=== PATIENT | female | born 1970 | race Caucasian/White ===

== ENCOUNTER 2023-08-04 15:14 | Outpatient (CLI) | payer OTHER | END 2023-08-04 15:15 | disposition home or self-care (01) | LOC: CSHMRI 15:14 | PROVIDERS: ATTEND Surgery | DX: M47.26 Other spondylosis with radiculopathy, lumbar region (principal); M25.48 Effusion, other site; N94.9 Unspecified condition associated with female genital organs and menstrual cycle | CPT/HCPCS: 72148 ==

== ENCOUNTER 2024-07-08 10:05 | Outpatient (CLI) | payer SELFPAY ==
[2024-07-08 10:48] LABS: #Basophils 0.04 10x3/uL (0.0-0.2); #Eosinophils 0.14 10x3/uL (0.0-0.5); #Monocytes 0.45 10x3/uL (0.0-1.1); %Basophils 0.9 % (0.0-2.0); %Eosinophils 3.1 % (0.0-6.0); %Lymphocytes 31.3 % (18.0-47.0); %Monocytes 9.8 % (0.0-10.0); %Neutrophils 54.7 % (40.0-75.0); Hematocrit 41.7 % (34.9-44.5); Hemoglobin 13.7 g/dL (12.0-15.5); Mean Corpuscular HGB CONC 32.9 g/dL (32.0-36.0); Mean Corpuscular Hemoglobin 31.4 pg (27.0-33.0); Mean Corpuscular Volume 95.4 fL (81.6-98.3); Mean Platelet Volume 9.6 fL (7.4-10.4); Platelet Count 276 10x3/uL (150-450); RBC Distribution Width 12.1 % (11.5-14.5); Red Blood Cell (RBC) Count 4.37 10x6/uL (3.90-5.03); White Blood Cell (WBC) Count 4.6 10x3/uL (3.5-10.5)
[2024-07-08 10:54] LABS: Anion Gap 12 mmol/L (10-20); BUN (Urea Nitrogen) 16 mg/dL (9.8-20.1); Calc. Creatinine Clearance 0 mL/min (70-130); Calcium 9.3 mg/dL (7.8-10.44); Carbon Dioxide 27 mmol/L (22-29); Chloride 105 mmol/L (98-107); Estimated GFR 86; Glucose 95 mg/dL (70-105); Potassium 4.2 mmol/L (3.5-5.1); Sodium 140 mmol/L (136-145)
== END 2024-07-08 10:06 | disposition home or self-care (01) ==
LOC: CSHLAB 10:05
PROVIDERS: ATTEND Specialist
DX: Z01.812 Encounter for preprocedural laboratory examination (principal); D05.12 Intraductal carcinoma in situ of left breast
CPT/HCPCS: 80048; 85025

== ENCOUNTER 2024-07-16 06:21 | Day surgery (SDC) | payer SELFPAY ==
[2024-07-08 10:26] VITALS: BMI 20.9
[2024-07-16] MEDS ORDERED: CEFAZOLIN 2 GM VIAL ONE (07:34)
[2024-07-16] MEDS ORDERED: Bupivacaine/Epinephrine 0.25% 30 ML VIAL ONE ×2 (07:34→12:47)
[2024-07-16] MEDS ORDERED: Ketorolac Tromethamine 30 MG (1 mL) VIAL ONE (10:21)
[2024-07-16] MEDS ORDERED: Acetaminophen 500 MG TAB ONE (10:22)
[2024-07-16] MEDS ORDERED: fentaNYL 50 mcg/mL 1 mL Vial ONE (11:40)
[2024-07-16] MEDS ORDERED: PROPOFOL 40 ML ONE (11:40)
[2024-07-16] MEDS ORDERED: Lidocaine 1% PF 5 ML VIAL ONE (11:41)
[2024-07-16] MEDS ORDERED: Dexamethasone 20 MG/5 ML VIAL ONE (12:13)
[2024-07-16] MEDS ORDERED: Ondansetron PF 4 MG/2 ML Vial ONE ×2 (12:13→14:05)
[2024-07-16] MEDS ORDERED: ePHEDrine Sulfate 50 MG/10 ML VIAL ONE (12:17)
[2024-07-16] MEDS ORDERED: Promethazine HCl 25 MG/ML VIAL ONE (13:41)
== END 2024-07-16 15:05 | disposition home or self-care (01) ==
LOC: CSHSDC 06:21
PROVIDERS: ATTEND Specialist
PROC: 0HBU0ZZ Excision of Left Breast, Open Approach (ICD-10-PCS; principal; 2024-07-16)
PROC: 0JB50ZZ Excision of Left Neck Subcutaneous Tissue and Fascia, Open Approach (ICD-10-PCS; principal; 2024-07-16)
DX: D05.12 Intraductal carcinoma in situ of left breast (principal); D17.0 Benign lipomatous neoplasm of skin and subcutaneous tissue of head, face and neck; N64.1 Fat necrosis of breast; R92.0 Mammographic microcalcification found on diagnostic imaging of breast; E03.9 Hypothyroidism, unspecified; Z88.2 Allergy status to sulfonamides; Z79.84 Long term (current) use of oral hypoglycemic drugs; Z79.899 Other long term (current) drug therapy
CPT/HCPCS: 19281; 76098; 88307; A6258; C1713; J1100; J1885; J2405; J2550; J2704; J3010